=== PATIENT | male | born 2000 | race Caucasian/White ===

== ENCOUNTER 2022-06-29 13:04 | Inpatient (IN) | payer BC ==
[~2022-06-29] VITALS: Ht 177.8 cm; Wt 78.9 kg
[2022-06-29 13:20] VITALS: BP_SYST 124
[2022-06-29] MEDS ORDERED: NACL 0.9% 1,000 ML IV ONE (14:45)
[2022-06-29] MEDS ORDERED: ONDANSETRON HCL 4 MG/2 ML VIAL IVP ONE (14:45)
[2022-06-29] MEDS ORDERED: KETOROLAC TROMETHAMINE 30 MG VIAL IVP ONE ×2 (14:45→18:30)
[2022-06-29] MEDS ORDERED: PENICILLIN G BENZATHINE 1.2 MMU/2 ML SYR IM ONE (15:00)
[2022-06-29] MEDS ORDERED: KETOROLAC TROMETHAMINE 30 MG VIAL ONE (17:06)
[2022-06-29] MEDS ORDERED: ONDANSETRON HCL 4 MG/2 ML VIAL ONE (17:07)
[2022-06-29] MEDS ORDERED: MORPHINE 4 MG INJ. 4 MG/ML VIAL IVP ONE (17:45)
[2022-06-29] MEDS ORDERED: DEXAMETHASONE SOD PHOSPHATE 10 MG/ML VIAL IVP ONE (18:00)
[2022-06-29] MEDS ORDERED: IBUP-1969 PO (18:11)
[2022-06-29] MEDS ORDERED: LIDVIS100 MM (18:11)
[2022-06-29] MEDS ORDERED: ACET-2634 PO (18:11)
[2022-06-29 19:09] LABS: STREPTOCOCCUS A SCREEN (RAPID) NEGATIVE (NEGATIVE)
[2022-06-29 19:17] LABS: BASOPHILS # (AUTO) 0.1 K/uL (0.0-0.2); EOSINOPHILS % (AUTO) 0.1 % (0.0-4.0); HEMATOCRIT 41.3 % (36-54); HEMOGLOBIN 14.3 g/dL (14.0-18.0); LYMPHOCYTES # (AUTO) 4.9 K/uL (1.0-5.5); LYMPHOCYTES % (AUTO) 41.3 % (20.5-51.5); MEAN CORPUSCULAR HEMOGLOBIN 30 pg (27-31); MEAN CORPUSCULAR HGB CONC 35 % (32-36); MEAN CORPUSCULAR VOLUME 87 fL (79.0-98.0); MONOCYTES # (AUTO) 0.5 K/uL (0.0-1.0); NEUTROPHILS # (AUTO) 6.3 K/uL (1.8-7.7); NEUTROPHILS % (AUTO) 53.6 % (40.0-70.0); PLATELET COUNT (AUTO) 223 K/uL (130-430); RED BLOOD CELL COUNT(AUTO) 4.76 MIL/uL (4.2-6.2); RED CELL DISTRIBUTION WIDTH 12.6 % (9.0-15.0); WHITE BLOOD COUNT (AUTO) 11.8 K/uL (4.5-11.0)
[2022-06-29 19:37] LABS: CALCIUM 8.4 mg/dL (8.4-11.0); CREATININE 1.28 mg/dL (0.55-1.30); POTASSIUM 4.5 mmol/L (3.5-5.1)
[2022-06-29 19:43] LABS: ALBUMIN 3.5 g/dL (3.4-4.8)
[2022-06-29] MEDS ORDERED: AMPICILLIN SODIUM/SULBACTAM NA 1.5 GM in NS 50 ML IV ONE (20:00)
[2022-06-29] MEDS ORDERED: AMPICILLIN SODIUM/SULBACTAM NA 1.5 GM VIAL ONE (20:13)
[2022-06-29] MEDS ORDERED: ACETAMINOPHEN 325 MG TABLET PO PRN ×2 (20:15→20:30)
[2022-06-29] MEDS ORDERED: ceFAZolin SODIUM 2 GM VIAL IV SCH (20:15)
[2022-06-29] MEDS ORDERED: MAGNESIUM SULFATE 50 ML IV PRN (20:15)
[2022-06-29] MEDS ORDERED: LORazepam 2 MG/ML VIAL IVP PRN (20:15)
[2022-06-29] MEDS ORDERED: ONDANSETRON HCL 4 MG/2 ML VIAL IVP PRN (20:15)
[2022-06-29] MEDS ORDERED: MUPIROCIN 2% TOPICAL OINTMENT 22 GM NS PRN (20:15)
[2022-06-29] MEDS ORDERED: DOCUSATE SODIUM 100 MG CAPSULE PO PRN (20:15)
[2022-06-29] MEDS ORDERED: POTASSIUM CHLORIDE 20 MEQ TAB.PRT.SR PO PRN (20:15)
[2022-06-29] MEDS ORDERED: MORPHINE 2 MG/ML INJ. SYRINGE IVP PRN (20:15)
[2022-06-29 22:15] VITALS: BP_SYST 112
[2022-06-29 22:49] VITALS: BP_SYST 112
[2022-06-29] MEDS ORDERED: FLU VACC QS2022-23(6MOS UP)/PF 0.5 ML/SYR SYRINGE I.M. PRN (23:15)
[2022-06-30 00:05] VITALS: BP_SYST 118
[2022-06-30 04:00] VITALS: BP_SYST 109
[2022-06-30 06:47] LABS: CALCIUM 7.9 mg/dL (8.4-11.0); CREATININE 1.09 mg/dL (0.55-1.30)
[2022-06-30 06:57] LABS: BASOPHILS % (AUTO) 0.3 % (0.0-2.0); HEMATOCRIT 40.9 % (36-54); HEMOGLOBIN 14.3 g/dL (14.0-18.0); LYMPHOCYTES # (AUTO) 3.8 K/uL (1.0-5.5); LYMPHOCYTES % (AUTO) 38.5 % (20.5-51.5); MEAN CORPUSCULAR HEMOGLOBIN 31 pg (27-31); MEAN CORPUSCULAR HGB CONC 35 % (32-36); MEAN CORPUSCULAR VOLUME 87 fL (79.0-98.0); MONOCYTES # (AUTO) 0.4 K/uL (0.0-1.0); MONOCYTES % (AUTO) 3.7 % (1.7-9.3); NEUTROPHILS # (AUTO) 5.7 K/uL (1.8-7.7); NEUTROPHILS % (AUTO) 57.5 % (40.0-70.0); PLATELET COUNT (AUTO) 235 K/uL (130-430); RED BLOOD CELL COUNT(AUTO) 4.69 MIL/uL (4.2-6.2); RED CELL DISTRIBUTION WIDTH 12.5 % (9.0-15.0); WHITE BLOOD COUNT (AUTO) 9.9 K/uL (4.5-11.0)
[2022-06-30] MEDS: MORPHINE 2 MG/ML INJ. SYRINGE IVP PRN ×2 (07:24→18:33)
[2022-06-30 08:00] VITALS: BP_SYST 110
[2022-06-30] MEDS: CEFAZOLIN SOD 1 GM/ ISO 50 ML PREMIX IV SCH ×2 (11:07→15:11)
[2022-06-30] MEDS: predniSONE 20 MG TABLET PO SCH ×2 (11:08→15:10)
[2022-06-30 12:00] VITALS: BP_SYST 116
[2022-06-30] MEDS: NACL 0.9% 1,000 ML IV SCH (15:10)
[2022-06-30 16:00] VITALS: BP_SYST 108
[2022-06-30 20:00] VITALS: BP_SYST 118
[2022-07-01] VITALS: BP_SYST 118
[2022-07-01] MEDS: CEFAZOLIN SOD 1 GM/ ISO 50 ML PREMIX IV SCH ×2 (00:17→06:07)
[2022-07-01] MEDS: MORPHINE 2 MG/ML INJ. SYRINGE IVP PRN (02:40)
[2022-07-01 05:57] VITALS: BP_SYST 121
[2022-07-01 07:15] LABS: BASOPHILS # (AUTO) 0.1 K/uL (0.0-0.2); BASOPHILS % (AUTO) 0.5 % (0.0-2.0); EOSINOPHILS % (AUTO) 0.2 % (0.0-4.0); HEMATOCRIT 39.9 % (36-54); HEMOGLOBIN 13.8 g/dL (14.0-18.0); LYMPHOCYTES # (AUTO) 4.5 K/uL (1.0-5.5); LYMPHOCYTES % (AUTO) 44.6 % (20.5-51.5); MEAN CORPUSCULAR HEMOGLOBIN 30 pg (27-31); MEAN CORPUSCULAR HGB CONC 35 % (32-36); MEAN CORPUSCULAR VOLUME 87 fL (79.0-98.0); MONOCYTES # (AUTO) 1.3 K/uL (0.0-1.0); MONOCYTES % (AUTO) 12.8 % (1.7-9.3); NEUTROPHILS # (AUTO) 4.3 K/uL (1.8-7.7); NEUTROPHILS % (AUTO) 41.9 % (40.0-70.0); PLATELET COUNT (AUTO) 234 K/uL (130-430); RED BLOOD CELL COUNT(AUTO) 4.56 MIL/uL (4.2-6.2); RED CELL DISTRIBUTION WIDTH 12.3 % (9.0-15.0); WHITE BLOOD COUNT (AUTO) 10.2 K/uL (4.5-11.0)
[2022-07-01 07:23] LABS: CALCIUM 8.6 mg/dL (8.4-11.0); CREATININE 1.2 mg/dL (0.55-1.30); POTASSIUM 4.1 mmol/L (3.5-5.1)
[2022-07-01 09:00] VITALS: BP_SYST 114
[2022-07-01] MEDS: NACL 0.9% 1,000 ML IV SCH ×2 (10:00→22:06)
[2022-07-01] MEDS ORDERED: predniSONE 20 MG TABLET PO ONE (12:45)
[2022-07-01] MEDS ORDERED: BENZOCAINE/MENTHOL 1 EACH LOZENGE MM PRN (13:15)
[2022-07-01] MEDS ORDERED: LIDOCAINE VISCOUS 2%, 15 ML UDC MM ONE (14:00)
[2022-07-01 14:08] VITALS: BP_SYST 123
[2022-07-01] MEDS: AMPICILLIN SODIUM/SULBACTAM NA 3 GM in NS 100 ML IV SCH ×2 (16:00→22:06)
[2022-07-01] MEDS ORDERED: ACETAMINOPHEN 325 MG TABLET PO PRN (16:15)
[2022-07-01 17:57] VITALS: BP_SYST 123
[2022-07-01 20:30] VITALS: BP_SYST 102
[2022-07-01] MEDS: LIDOCAINE VISCOUS 2%, 15 ML UDC MM SCH (22:06)
[2022-07-02 01:00] VITALS: BP_SYST 116
[2022-07-02] MEDS: AMPICILLIN SODIUM/SULBACTAM NA 3 GM in NS 100 ML IV SCH ×2 (03:30→09:10)
[2022-07-02] MEDS: NACL 0.9% 1,000 ML IV SCH (06:45)
[2022-07-02 07:23] VITALS: BP_SYST 110
[2022-07-02 07:33] LABS: HEMATOCRIT 40.4 % (36-54); HEMOGLOBIN 13.8 g/dL (14.0-18.0); MEAN CORPUSCULAR HEMOGLOBIN 30 pg (27-31); MEAN CORPUSCULAR HGB CONC 34 % (32-36); MEAN CORPUSCULAR VOLUME 87 fL (79.0-98.0); PLATELET COUNT (AUTO) 227 K/uL (130-430); RED BLOOD CELL COUNT(AUTO) 4.65 MIL/uL (4.2-6.2); RED CELL DISTRIBUTION WIDTH 12.2 % (9.0-15.0); WHITE BLOOD COUNT (AUTO) 10.2 K/uL (4.5-11.0)
[2022-07-02 08:00] VITALS: BP_SYST 108
[2022-07-02 08:33] LABS: ALBUMIN 3.2 g/dL (3.4-4.8); BILIRUBIN,DIRECT 0.2 mg/dL (0.0-0.3); CALCIUM 8.1 mg/dL (8.4-11.0); CREATININE 0.72 mg/dL (0.55-1.30); POTASSIUM 4.1 mmol/L (3.5-5.1); TOTAL BILIRUBIN 0.8 mg/dL (0.0-1.0)
[2022-07-02] MEDS ORDERED: predniSONE 20 MG TABLET PO SCH (09:00)
[2022-07-02] MEDS ORDERED: METHYLPREDNISOLONE SOD SUCC 40 MG/ML VIAL IVP SCH (09:00)
[2022-07-02] MEDS: LIDOCAINE VISCOUS 2%, 15 ML UDC MM SCH (09:16)
[2022-07-02] MEDS ORDERED: AUG875 PO (10:36)
[2022-07-02] MEDS ORDERED: LIDVIS100 MM (10:36)
[2022-07-02] MEDS ORDERED: IBUP-1969 PO (10:36)
[2022-07-02 11:06] LABS: HEPATITIS A AB, IgM Negative (Negative); HEPATITIS B CORE AB, IgM Negative (Negative); HEPATITIS B SURFACE AG Negative (Negative)
[2022-07-02 11:18] VITALS: BP_SYST 116
[2022-07-02 11:31] VITALS: BP_SYST 118
[2022-07-02 12:26] LABS: ATYPICAL LYMPHOCYTES % 11 % (0-0); BASOPHILS % (MANUAL) 0 % (0-2); EOSINOPHILS % (MANUAL) 0 % (0-7); LYMPHOCYTES % (MANUAL) 25 % (20-46); MONOCYTES % (MANUAL) 20 % (0-11)
== END 2022-07-02 12:30 | disposition home or self-care (01) | DRG 872 ==
LOC: SED 13:04 → SMU 20:11
PROVIDERS: ADMIT Family Medicine; ATTEND Family Medicine
DX: A41.9 Sepsis, unspecified organism (principal); B37.0 Candidal stomatitis; E83.51 Hypocalcemia; R74.01 Elevation of levels of liver transaminase levels; J03.90 Acute tonsillitis, unspecified; R13.10 Dysphagia, unspecified; Z20.822 Contact with and (suspected) exposure to COVID-19; Z79.1 Long term (current) use of non-steroidal anti-inflammatories (NSAID); Z79.899 Other long term (current) drug therapy
CPT/HCPCS: 36415; 70490; 71045; 76376; 80048; 80053; 80074; 80076; 83605; 83735; 85007; 85025; 85027; 86308-TC; 86403; 87040; 87081; 96361; 96365; 96375; 99285; J0295; J0690; J1030; J1100; J1885; J2001; J2270; J2405; J7030; J7512